=== PATIENT | female | born 1980 | race Caucasian/White ===

== ENCOUNTER 2020-07-02 17:14 | Emergency (ER) | payer OTHER ==
[2020-07-02 20:03] LABS: BASOPHIL 0.1 % (0-2); EOSINOPHIL 0.1 % (0-5); HCT 42.7 % (37.0-47.0); HGB 14.3 g/dl (12.5-16.0); LYMPHOCYTE 5.3 % (15-48); MCH 30.4 pg (25.0-31.0); MCHC 33.5 g/dL (32.0-36.0); MCV 90.9 fL (78.0-100.0); MPV 10.2 fL (6.0-9.5); NEUTROPHIL 91.2 % (41-80); NRBC 0; PLT 263 K/uL (150-400); RDW 12.5 % (11.5-14.0); WBC 9.1 K/uL (4.0-10.5)
[2020-07-02 20:15] LABS: ALBUMIN 3.9 g/dL (3.4-5.0); BILIRUBIN - TOTAL 1.1 mg/dL (0.2-1.0); BUN/CREAT RATIO (CALC) 14.5 RATIO; C-REACTIVE PROTEIN 0.9 mg/dL (<=0.90); CREATININE 0.69 mg/dL (0.51-0.95); GLOBULIN (CALCULATION) 2.5 g/dL; POTASSIUM 3.9 mmol/L (3.5-5.1); TOTAL PROTEIN 6.4 g/dL (6.4-8.2)
[2020-07-02 20:15] LABS: BILIRUBIN 1+ mg/dL (NEGATIVE); BLOOD TRACE-INTACT Ery/uL (NEGATIVE); COLOR YELLOW (YELLOW); GLUCOSE (U) NORMAL (NORMAL); LEUKOCYTES NEGATIVE Leu/uL (NEGATIVE); NITRITE NEGATIVE (NEGATIVE); PROTEIN NEGATIVE (NEGATIVE); SPECIFIC GRAVITY >=1.030 (1.001-1.030); UROBILINOGEN 0.2 mg/dL (0.2-1.0); pH 5.5 (5.0-9.0)
[2020-07-02 20:16] LABS: CLARITY SLIGHTLY HAZY (CLEAR)
[2020-07-02 20:19] LABS: HCG (URINE) SCREEN NEGATIVE (NEGATIVE)
[2020-07-02 20:21] LABS: BACTERIA TRACE; MUCOUS MODERATE; URINARY WBC RARE
[2020-07-02] MEDS ORDERED: ONDANSETRON ODT4 MG PO (23:18)
[2020-09-09] MEDS ORDERED: SYNTHROID125 MCG PO (13:18)
[2020-09-15] MEDS ORDERED: OXY-IR 5MG5 MG PO (10:38)
[2020-09-15] MEDS ORDERED: COLACE100 MG PO (10:38)
[2020-09-15] MEDS ORDERED: MOTRIN600 MG PO (10:38)
[2020-09-15] MEDS ORDERED: ACETAMINOPHEN500 M1 PO (10:38)
== END 2020-07-02 23:31 | disposition home or self-care (01) ==
LOC: FER 17:14
PROVIDERS: Student in an Organized Health Care Education/Training Program
DX: A08.4 Viral intestinal infection, unspecified (principal); I10 Essential (primary) hypertension; Z87.19 Personal history of other diseases of the digestive system
CPT/HCPCS: 36415; 80053; 81001; 83690; 84145; 84703; 85025; 86140; 87339; J1885; J2405

== ENCOUNTER 2020-09-15 15:47 | Emergency (ER) | payer OTHER ==
[2020-09-15 16:32] LABS: BASOPHIL 0.2 % (0-2); EOSINOPHIL 0 % (0-5); HCT 37.3 % (37.0-47.0); HGB 12.4 g/dl (12.5-16.0); LYMPHOCYTE 5.3 % (15-48); MCHC 33.2 g/dL (32.0-36.0); MCV 90.3 fL (78.0-100.0); MPV 9.9 fL (6.0-9.5); NEUTROPHIL 92.1 % (41-80); NRBC 0; PLT 290 K/uL (150-400); RBC 4.13 M/uL (4.20-5.40); RDW 12.9 % (11.5-14.0); WBC 13.2 K/uL (4.0-10.5)
[2020-09-15 16:55] LABS: CREATININE 0.79 mg/dL (0.51-0.95); POTASSIUM 5.1 mmol/L (3.5-5.1)
[2020-09-15 16:56] LABS: ALBUMIN 3.7 g/dL (3.4-5.0); GLOBULIN (CALCULATION) 2.9 g/dL; TOTAL PROTEIN 6.6 g/dL (6.4-8.2)
== END 2020-09-15 18:26 | disposition home or self-care (01) ==
LOC: FER 15:47
PROVIDERS: Emergency Medicine
DX: R55 Syncope and collapse (principal); R11.0 Nausea; Z90.49 Acquired absence of other specified parts of digestive tract
CPT/HCPCS: 36415; 80053; 85025; 99285; J7030

== ENCOUNTER → 2020-09-15 | Day surgery (SDC) | payer OTHER ==
[~2020-09-15] VITALS: Ht 165.1 cm; Wt 64.9 kg
[~2020-09-15] MED LIST: ACETAMINOPHEN500 M1 PO; COLACE100 MG PO; MOTRIN600 MG PO; ONDANSETRON ODT4 MG PO; OXY-IR 5MG5 MG PO; SYNTHROID125 MCG PO
[2020-09-15 08:37] LABS: HCG (URINE) SCREEN NEGATIVE (NEGATIVE)
== END | disposition home or self-care (01) ==
LOC: FAS 07:46
PROVIDERS: Anesthesiology
DX: K81.1 Chronic cholecystitis (principal); K66.0 Peritoneal adhesions (postprocedural) (postinfection); E05.00 Thyrotoxicosis with diffuse goiter without thyrotoxic crisis or storm; E89.2 Postprocedural hypoparathyroidism; F10.10 Alcohol abuse, uncomplicated; F41.9 Anxiety disorder, unspecified; E55.9 Vitamin D deficiency, unspecified; Z79.899 Other long term (current) drug therapy
CPT/HCPCS: 84703; J1100; J1644; J1885; J2250; J2405; J2550; J2704; J2710; J3010; J7120